=== PATIENT | male | born 1950 | race Caucasian/White ===

== ENCOUNTER 2017-07-17 08:00 | Day surgery (SDC) | payer BC, OTHER ==
[~2017-07-17] VITALS: Ht 177.8 cm; Wt 80.7 kg
[2017-07-17] MEDS ORDERED: LevALBUTEROL HCL 1.25 MG/0.5 ML *CONC.* VIAL.NEB (XOPENEX CONC.) INH ONE ×2 (09:00→09:26)
[2017-07-17] MEDS ORDERED: METOCLOPRAMIDE HCL 10 MG/2 ML VIAL IVP ONE (09:50)
[2017-07-17] MEDS ORDERED: ROCURONIUM BROMIDE 10 MG/ML (ZEMURON) IV ONE (09:50)
[2017-07-17] MEDS ORDERED: SEVOFLURANE 15 MIN GAS INH ONE (09:50)
[2017-07-17] MEDS ORDERED: fentaNYL CITRATE/PF 100 MCG/2 ML AMP IVP ONE (09:50)
[2017-07-17] MEDS ORDERED: LR 1,000 ML IV.SOLN IV ONE (09:50)
[2017-07-17] MEDS ORDERED: DILTIAZEM HCL 25 MG/5 ML VIAL IV ONE (09:50)
[2017-07-17] MEDS ORDERED: PROPOFOL 200MG/ 20ML VIAL (DIPRIVAN) IV ONE (09:50)
[2017-07-17] MEDS ORDERED: NS IRRIG SOLN 1000 ML IR ONE (09:50)
[2017-07-17] MEDS ORDERED: GLYCOPYRROLATE 0.2 MG/ML VIAL IJ ONE (09:50)
[2017-07-17] MEDS ORDERED: MIDAZOLAM HCL 5 MG/5 ML VIAL IVP ONE (09:50)
[2017-07-17] MEDS ORDERED: KETOROLAC TROMETHAMINE 15 MG VIAL IVP ONE (09:50)
[2017-07-17] MEDS ORDERED: DEXAMETHASONE SOD PHOSPHATE 4 MG/ML VIAL IVP ONE (09:50)
[2017-07-17] MEDS ORDERED: NEOSTIGMINE METHYLSULFATE 1 MG/ML, 10 ML VIAL IVP ONE (09:50)
[2017-07-17] MEDS ORDERED: MUPIROCIN 2% TOPICAL OINTMENT 22 GM TP ONE (09:50)
[2017-07-17] MEDS ORDERED: BACITRACIN ZINC 15 GM TOPICAL OINTMENT TP ONE (09:50)
[2017-07-17] MEDS ORDERED: EPINEPHrine 1 MG/ML AMP IVP ONE (09:50)
[2017-07-17] MEDS ORDERED: WATER FOR IRRIGATION,STERILE 1,000 ML IRRIG.SOLN IR ONE (09:50)
[2017-07-17] MEDS ORDERED: NS 50 ML BAG IV ONE (09:50)
[2017-07-17] MEDS ORDERED: LEVOFLOXACIN 500 MG/D5W 100 ML PIGGYBACK IV ONE (09:50)
[2017-07-17] MEDS ORDERED: ONDANSETRON HCL 4 MG/2 ML VIAL IVP ONE (09:50)
[2017-07-17] MEDS ORDERED: fentaNYL CITRATE 250 MCG/5 ML AMP IV ONE (09:50)
[2017-07-17] MEDS ORDERED: OXYMETAZOLINE HCL 0.05% NASAL SPRAY NS ONE (09:50)
[2017-07-17] MEDS ORDERED: [UNRECOGNIZED DRUG - OTHER] INJ ONE (09:50)
[2017-07-17] MEDS ORDERED: LR 1,000 ML IV SCH (10:58)
[2017-07-17] MEDS ORDERED: HYDROmorphone 1 MG INJ. 1 MG/ML AMPUL IVP PRN (11:00)
[2017-07-17] MEDS ORDERED: MEPERIDINE HCL/PF 25 MG/ML DISP.SYRIN IVP PRN (11:00)
[2017-07-17] MEDS ORDERED: HYDROmorphone 2 MG/ML VIAL IVP PRN ×2 (11:00)
[2017-07-17 13:40] VITALS: BP_SYST 137
== END 2017-07-17 14:30 | disposition home or self-care (01) ==
LOC: SMU 08:00 → SDS 08:00
PROVIDERS: ATTEND Otolaryngology
DX: J34.2 Deviated nasal septum (principal); E11.22 Type 2 diabetes mellitus with diabetic chronic kidney disease; J32.9 Chronic sinusitis, unspecified; J34.89 Other specified disorders of nose and nasal sinuses; E78.5 Hyperlipidemia, unspecified; D64.9 Anemia, unspecified; J98.8 Other specified respiratory disorders; M19.90 Unspecified osteoarthritis, unspecified site; I12.9 Hypertensive chronic kidney disease with stage 1 through stage 4 chronic kidney disease, or unspecified chronic kidney disease; N18.9 Chronic kidney disease, unspecified; Z87.891 Personal history of nicotine dependence
CPT/HCPCS: 30140; 30520; 30999; 31255; 31267; 31296; 82962; 87070; 87075; 94640; 87116; 87101; 88305; 88311; J1100; J3490 ×2; J0171; J1885; J1956; J2765; J2250; J2710; J2405; J2704; J3010 ×2; J7120; C1726

== ENCOUNTER 2017-12-09 09:05 | Outpatient (CLI) | payer BC, OTHER | END 2017-12-09 22:18 | disposition home or self-care (01) | LOC: SNM 09:05 | PROVIDERS: ATTEND Internal Medicine Cardiovascular Disease | DX: C61 Malignant neoplasm of prostate (principal) | CPT/HCPCS: 78306; A9503 ==

== ENCOUNTER 2021-08-16 10:17 | Day surgery (SDC) | payer OTHER, MEDICARE, SELFPAY ==
[2021-08-13 11:31] LABS: BASOPHILS % (AUTO) 0.5 % (0.0-2.0); EOSINOPHILS # (AUTO) 0.1 K/uL (0.0-0.4); EOSINOPHILS % (AUTO) 1.1 % (0.0-4.0); HEMATOCRIT 36.1 % (36-54); HEMOGLOBIN 12.2 g/dL (14.0-18.0); LYMPHOCYTES # (AUTO) 1.4 K/uL (1.0-5.5); LYMPHOCYTES % (AUTO) 16.5 % (20.5-51.5); MEAN CORPUSCULAR HEMOGLOBIN 31 pg (27-31); MEAN CORPUSCULAR HGB CONC 34 % (32-36); MEAN CORPUSCULAR VOLUME 93 fL (79.0-98.0); MONOCYTES # (AUTO) 0.4 K/uL (0.0-1.0); MONOCYTES % (AUTO) 4.5 % (1.7-9.3); NEUTROPHILS # (AUTO) 6.5 K/uL (1.8-7.7); NEUTROPHILS % (AUTO) 77.4 % (40.0-70.0); PLATELET COUNT (AUTO) 269 K/uL (130-430); RED BLOOD CELL COUNT(AUTO) 3.89 MIL/uL (4.2-6.2); RED CELL DISTRIBUTION WIDTH 14.3 % (9.0-15.0); WHITE BLOOD COUNT (AUTO) 8.3 K/uL (4.8-10.8)
[2021-08-13 11:50] LABS: BILIRUBIN,URINE NEGATIVE (NEGATIVE); BLOOD, URINE NEGATIVE (NEGATIVE); CLARITY/URINE CLEAR (CLEAR); COLOR,URINE YELLOW (YELLOW); GLUCOSE,URINE TRACE (NEGATIVE); KETONES,URINE TRACE (NEGATIVE); LEUKOCYTE ESTERASE ,URINE NEGATIVE (NEGATIVE); NITRITE, URINE NEGATIVE (NEGATIVE); PH,URINE 5.5 (5.0-8.0); PROTEIN URINE TRACE (NEGATIVE); UROBILINOGEN,URINE 0.2 (0.2-1.0)
[2021-08-13 11:55] LABS: ANION GAP 8 (5-15); CALCIUM 10.4 mg/dL (8.4-11.0); CHLORIDE 106 mmol/L (98-107); CREATININE 1.39 mg/dL (0.55-1.30); GLUCOSE 170 mg/dL (70-99); POTASSIUM 4.7 mmol/L (3.5-5.1); SODIUM SERUM 139 mmol/L (136-145); UREA NITROGEN, BLOOD 21 mg/dL (8-21)
[2021-08-13 11:57] LABS: INR 1.1 (0.80-1.20); PROTHROMBIN TIME 11.5 SECS (9.5-12.5)
[~2021-08-16] VITALS: Ht 177.8 cm; Wt 77.1 kg
[2021-08-16] MEDS ORDERED: fentaNYL CITRATE/PF 100 MCG/2 ML AMP IVP ONE (13:25)
[2021-08-16] MEDS ORDERED: MIDAZOLAM HCL 5 MG/5 ML VIAL IVP ONE (13:25)
[2021-08-16] MEDS ORDERED: LR 1,000 ML IV.SOLN IV ONE (13:25)
[2021-08-16] MEDS ORDERED: PROPOFOL 200MG/ 20ML VIAL (DIPRIVAN) IV ONE (13:25)
[2021-08-16] MEDS ORDERED: BUPIVACAINE /EPINEPHRINE/PF 0.25% 30 ML VIAL INJ ONE (13:25)
[2021-08-16] MEDS ORDERED: MEPERIDINE 50 MG/ML VIAL IM ONE (13:25)
[2021-08-16] MEDS ORDERED: SEVOFLURANE 15 MIN GAS INH ONE (13:25)
[2021-08-16] MEDS ORDERED: NS IRRIG SOLN 1000 ML IR ONE (13:25)
[2021-08-16 16:28] VITALS: BP_SYST 166
== END 2021-08-16 15:30 | disposition home or self-care (01) ==
LOC: SDS 10:17 → SMU 10:19 → SDS 15:30
PROVIDERS: ATTEND Orthopaedic Surgery
DX: G56.01 Carpal tunnel syndrome, right upper limb (principal); Z20.822 Contact with and (suspected) exposure to COVID-19; Z79.01 Long term (current) use of anticoagulants; Z79.899 Other long term (current) drug therapy
CPT/HCPCS: 36415; 64721; 71046; 80048; 81003; 82962; 83036; 85025; 85610; 85730; J2250; J2704; J3010; J3490; J7120; U0003